=== PATIENT | male | born 1955 | race Hispanic/Latino ===

== ENCOUNTER 2021-07-24 23:36 | Emergency (ER) | payer MEDICARE ==
[~2021-07-24] VITALS: Ht 185.4 cm; Wt 113.4 kg
[2021-07-24 23:51] LABS: BASOPHILS % (AUTO) 0.9 % (0.0-5.0); EOSINOPHILS % (AUTO) 2.4 % (0.0-8.0); HEMATOCRIT 47.7 % (42-54); LYMPHOCYTES % (AUTO) 35.7 % (21.0-51.0); MEAN CORPUSCULAR HEMOGLOBIN 30.3 pg (27.0-33.0); MEAN CORPUSCULAR HGB CONC 33.5 g/dL (32.0-36.0); MEAN CORPUSCULAR VOLUME 90.3 fL (79-99); MONOCYTES % (AUTO) 11.3 % (3.0-13.0); NEUTROPHILS % (AUTO) 49.2 % (40.0-77.0); PLATELET COUNT (AUTO) 166 K/uL (130-400); RED BLOOD CELL COUNT(AUTO) 5.28 MIL/uL (4.50-6.20); RED CELL DISTRIBUTION WIDTH 13.8 % (11.0-15.5); WHITE BLOOD COUNT (AUTO) 5.8 K/uL (4.8-10.8)
[2021-07-25 00:27] LABS: POTASSIUM 3.8 mmol/L (3.5-5.1)
[2021-07-25 00:31] LABS: BILIRUBIN,TOTAL 0.6 mg/dL (0.2-1.0); TOTAL PROTEIN, SERUM 7.1 g/dL (6.0-8.3)
[2021-07-25] MEDS ORDERED: ACETAMINOPHEN 325 MG TAB ONE (02:00)
[2021-07-25] MEDS ORDERED: IBUPROFEN 800 MG TAB ONE (02:05)
[2021-07-25] MEDS ORDERED: 0.9% NACL 500ML IV.SOLN 500 ML IV ONE (04:00)
[2021-07-25] MEDS ORDERED: IOHEXOL 350 MG/ML 100ML INFUS..BTL IV ONE (04:33)
[2021-07-25 06:20] VITALS: BP 126/74
[2021-07-25] MEDS ORDERED: IBUP-2077 PO (06:22)
== END 2021-07-25 06:33 | disposition home or self-care (01) ==
LOC: EDH 23:36
DX: S92.312A Displaced fracture of first metatarsal bone, left foot, initial encounter for closed fracture (principal); S29.012A Strain of muscle and tendon of back wall of thorax, initial encounter; F10.129 Alcohol abuse with intoxication, unspecified; E16.2 Hypoglycemia, unspecified; E86.1 Hypovolemia; W18.39XA Other fall on same level, initial encounter; Y93.89 Activity, other specified; Y92.89 Other specified places as the place of occurrence of the external cause; Y99.8 Other external cause status; Y90.7 Blood alcohol level of 200-239 mg/100 ml
CPT/HCPCS: 36415; 70450; 71045; 71260; 72125; 72128; 73630; 73700; 74177; 80053; 84484; 85025; 93005; 96360; 96361; 99285; J7040; Q9967